=== PATIENT | female | born 1960 | race Caucasian/White ===

== ENCOUNTER 2017-03-01 10:12 | Emergency (ER) | payer OTHER ==
[2017-03-01 10:19] VITALS: BP 152/90
[2017-03-01] MEDS ORDERED: CLINDAMYCIN HCL 150 MG CAPSULE PO ONE (10:58)
--- NOTE | 2017-03-01 11:02 | ER Document Report ---
HPI - HPI Patient complains to provider of: skin sore Onset: Other - 2 days Onset/Duration: Worse Quality of pain: Achy Pain Level: 3 Context: Patient complains of redness and tenderness to forehead. Patient states she thought she might of gotten bit by something. Patient states she squeezed the area but no drainage came out. Patient denies any fever. Patient states that she also had a pimple inside her left nostril that she scratched. She denies any history of MRSA but states that her had MRSA in the past. Associated Symptoms: Other - Skin lesion to face Exacerbated by: Denies Relieved by: Denies Similar symptoms previously: No Recently seen / treated by doctor: No - ROS ROS below otherwise negative: Yes Systems Reviewed and Negative: Yes All other systems reviewed and negative - CONSTITUTIONAL Constitutional: DENIES: Fever, Chills - DERM Notes: pimple in nose Past Medical History - General Information source: Patient - Social History Smoking Status: Never Smoker Chew tobacco use (# tins/day): No Frequency of alcohol use: Occasional Drug Abuse: None Occupation: school syste Lives with: Family Family History: Reviewed & Not Pertinent Patient has suicidal ideation: No Patient has homicidal ideation: No - Past Medical History Cardiac Medical History: Reports: Hx Hypertension Endocrine Medical History: Reports: Hx Hypothyroidism Renal/ Medical History: Denies: Hx Peritoneal Dialysis Past Surgical History: Reports: Hx Hysterectomy Vertical Provider Document - CONSTITUTIONAL Agree With Documented VS: Yes Exam Limitations: No Limitations General Appearance: WD/WN, No Apparent Distress - INFECTION CONTROL TRAVEL OUTSIDE OF THE [place] IN LAST 30 DAYS: No - HEENT HEENT: Atraumatic, Normocephalic - NECK Neck: Normal Inspection, Supple. negative: Lymphadenopathy-Left, Lymphadenopathy-Right - RESPIRATORY Respiratory: Breath Sounds Normal, No Respiratory Distress O2 Sat by Pulse Oximetry: 97 - CARDIOVASCULAR Cardiovascular: Regular Rate, Regular Rhythm - MUSCULOSKELETAL/EXTREMETIES Musculoskeletal/Extremeties: MAEW - NEURO Level of Consciousness: Awake, Alert, Appropriate Motor/Sensory: No Motor Deficit - DERM Integumentary: Warm, Dry Notes: Erythematous skin lesion with central crusted area to forehead between eyebrows , no fluctuance, no drainable abscess. No concern for septal or preseptal cellulitis. No proptosis. Patient with tender erythematous papular lesion inside left nostril Course - Re-evaluation Re-evalutation: 03/01/17 11:00 The patient has been informed that they may have pre-hypertension or hypertension based on a blood pressure reading in the emergency department. I recommend that patient call the primary care provider listed on their discharge instructions or a physician of their choice by this week to arrange follow-up for further evaluation of possible pre-hypertension or hypertension. - Vital Signs Vital signs: Temp Pulse Resp BP Pulse Ox 98.0 F 73 20 152/90 H 97 03/01/17 10:19 03/01/17 10:19 03/01/17 10:19 03/01/17 10:19 03/01/17 10:19 Discharge - Discharge Clinical Impression: Cellulitis Qualifiers: Site of cellulitis: face Qualified Code(s): L03.211 - Cellulitis of face Condition: Stable Disposition: HOME, SELF-CARE Instructions: Bactroban Ointment ([facility]), Cellulitis ([facility]), Clindamycin ([facility]) Additional Instructions: Return immediately for any new or worsening symptoms Followup with your primary care provider, call tomorrow to make a followup appointment Prescriptions: Clindamycin HCl [Cleocin 300 mg Capsule] 300 mg PO TID #21 capsule Mupirocin [Bactroban 2% Ointment 22 gm] 1 applic TP TID #22 gm Referrals: [facility] [Provider Group] - Follow up as needed
== END 2017-03-01 11:05 | disposition home or self-care (01) ==
LOC: ER 10:12
DX: L03.211 Cellulitis of face (principal); R23.8 Other skin changes; I10 Essential (primary) hypertension
CPT/HCPCS: 99283

== ENCOUNTER 2017-03-02 09:59 | Emergency (ER) | payer OTHER ==
[2017-03-02] MEDS ORDERED: CLINDAMYCIN HCL 150 MG CAPSULE PO ONE (11:24)
[2017-03-02] MEDS ORDERED: DIPHENHYDRAMINE HCL 50 MG CAPSULE PO ONE (11:24)
[2017-03-02] MEDS ORDERED: ACETAMINOPHEN 325 MG TABLET PO ONE (11:24)
--- NOTE | 2017-03-02 11:24 | ER Document Report ---
ED General - General Chief Complaint: Swelling Stated Complaint: SKIN SORE ON FOREHEAD Time Seen by Provider: 03/02/17 10:50 Notes: Patient is a 49-year-old female who presents emergency department after evaluation in her department for cellulitis yesterday. States she woke up this morning with some swelling around her eye. She denies any pain, induration or warmth. She denies any vision changes, dizziness. She admits to mild headache that is improved with Tylenol. She denies any drainage or increased swelling at the site. She has been taking her medications as directed. TRAVEL OUTSIDE OF THE [place] IN LAST 30 DAYS: No - Related Data Allergies/Adverse Reactions: cephalexin [From Keflex] Allergy (Verified 03/02/17 10:02) Past Medical History - Social History Smoking Status: Never Smoker Frequency of alcohol use: Occasional Drug Abuse: None Family History: Reviewed & Not Pertinent Patient has suicidal ideation: No Patient has homicidal ideation: No - Past Medical History Cardiac Medical History: Reports: Hx Hypertension Endocrine Medical History: Reports: Hx Hypothyroidism Renal/ Medical History: Denies: Hx Peritoneal Dialysis Past Surgical History: Reports: Hx Cholecystectomy, Hx Hysterectomy Review of Systems - Review of Systems Constitutional: No symptoms reported EENT: See HPI Cardiovascular: No symptoms reported Respiratory: No symptoms reported Neurological/Psychological: See HPI -: Yes All other systems reviewed and negative Physical Exam - Vital signs Vitals: Temp Pulse Resp BP Pulse Ox 98.2 F 73 16 130/71 H 97 03/02/17 10:05 03/02/17 10:05 03/02/17 10:05 03/02/17 10:05 03/02/17 10:05 - Notes Notes: PHYSICAL EXAM GENERAL: Alert, interacts well. HEAD: Normocephalic, atraumatic. EYES: Pupils equal, round, and reactive to light. Extraocular movements intact. Superficial bilateral lower eyelid puffiness R>L without tendnerness, induration , edema, erythema ENT: Oral mucosa moist, tongue midline. NECK: Full range of motion. Supple. Trachea midline. LUNGS: Clear to auscultation bilaterally, no wheezes, rales, or rhonchi. No respiratory distress. HEART: Regular rate and rhythm. No murmurs, gallops, or rubs. NEUROLOGICAL: Alert and oriented x4. Normal speech. PSYCH: Normal affect, normal mood. SKIN: Warm, dry, normal turgor. eErythematous skin lesion with central crusted area to forehead between eyebrows measuring 0.5cm in diameter, no fluctuance, no drainable abscess. No concern for septal or preseptal cellulitis. No proptosis. Patient with tender erythematous papular lesion inside left nostril Course - Re-evaluation Re-evalutation: 03/02/17 12:29 Patient is a 57-year-old female who returns emergency department after puffiness around her eyes started when she woke up this morning. No associated vision changes, concerns for worsening cellulitis or presentation consistent with orbital or periorbital cellulitis. Her presentation today is consistent with localized irritation likely related to lymph reaction to patient's cellulitis on her forehead. Her symptoms did improve after cold compresses. Patient did receive a dose of Tylenol Benadryl for headache which she states has resolved. Discussed strict return precautions that would be concerning for genoveva-orbital or orbital cellulitis and patient is agreeable with plan otherwise will follow up with her primary care. Patient is stable for discharge home - Vital Signs Vital signs: Temp Pulse Resp BP Pulse Ox 98.2 F 73 16 130/71 H 97 03/02/17 10:05 03/02/17 10:05 03/02/17 10:05 03/02/17 10:05 03/02/17 10:05 Discharge - Discharge Clinical Impression: Cellulitis Qualifiers: Site of cellulitis: face Qualified Code(s): L03.211 - Cellulitis of face Condition: Good Disposition: HOME, SELF-CARE Additional Instructions: The puffiness of your eyes is related to the lymph drainage of your skin condition. Please continue to take your antibiotic as directed. Cold compresses will help with the puffiness of your eyes otherwise utilize the same instructions you were given on your initial visit. Please follow-up with your primary care doctor.
[2017-03-02 13:01] VITALS: BP 126/71
== END 2017-03-02 13:01 | disposition home or self-care (01) ==
LOC: ER 09:59
DX: L03.211 Cellulitis of face (principal); R22.0 Localized swelling, mass and lump, head; L98.9 Disorder of the skin and subcutaneous tissue, unspecified; R51 Headache
CPT/HCPCS: 99283